=== PATIENT | male | born 1980 | race Caucasian/White ===

== ENCOUNTER 2019-10-11 16:29 | Emergency (ER) | payer SELFPAY ==
[2019-10-11] VITALS (8 sets, daily range): BP systolic 143–181; BP diastolic 104–124; PULSE 70–99; RESP 18–28; TEMP 36.1–37.1; O2SAT 96–98
--- NOTE | ~2019-10-11 | XR_ITS ---
EXAMINATION: XR chest 1V portable DATE: 10/11/2019 17:57 INDICATION: Cough. Dyspnea. TECHNIQUE: A single frontal view of the chest was obtained on 2 radiographs. COMPARISON: CT abdomen and pelvis 08/03/2016 FINDINGS: The chest demonstrates clear lungs without pneumonia, pleural effusion, or pneumothorax. Th e heart size is normal. IMPRESSION: 1. No acute cardiopulmonary disease. Reviewed, dictated and finalized at location A.
--- NOTE | 2019-10-11 16:38 | ECG_ITS ---
Measurements Intervals [place] Rate: 84 P: 46 OR: 145 QRS: 3 QRSD: 89 T: 35 QT: 372 QTc: 441 Interpretive Statements SINUS RHYTHM NONSPECIFIC T-WAVE ABNORMALITY- INFERIOR LEADS BORDERLINE ECG Electronically Signed On 10-12-2019 7:40:52 CDT by Murphy Millard D.O.
[2019-10-11 17:12] LABS: Basophils Absolute Auto 0.1 K/mm3 (0.0-0.1); Basophils Percent Auto 0.9 % (0.2-1.2); Eosinophils Absolute Auto 0.3 K/mm3 (0-0.3); Eosinophils Percent Auto 2.7 % (0-4.4); Hematocrit 49.3 % (42.0-52.0); Hemoglobin 17.2 g/dL (14.0-18.0); Immature Granulocyte Absolute 0.05 K/mm3 (0.00-0.031); Immature Granulocyte Percent A 0.5 % (0-0.5); Lymphocytes Absolute Auto 2.08 K/mm3 (0.9-3.2); Lymphocytes Percent Auto 22.3 % (18.3-44.2); Mean Corpuscular HGB Conc 34.9 g/dl (32-36); Mean Corpuscular Hemoglobin 29.9 pg (26-34); Mean Corpuscular Volume 85.6 fl (80-100); Mean Platelet Volume 10.6 fl (7.4-10.4); Monocytes Absolute Auto 0.6 K/mm3 (0.1-0.6); Monocytes Percent Auto 6.2 % (2.6-8.5); Neutrophils Absolute Auto 6.3 K/mm3 (1.3-6.7); Neutrophils Percent Auto 67.4 % (45.5-73.1); Platelet Count Result 253 k/mm3 (150-375); Red Blood Count 5.76 M/mm3 (4.6-6.20); Red Cell Distribution Width 13.2 % (11.5-14.5); White Blood Count 9.3 K/mm3 (4.5-10.0)
--- NOTE | 2019-10-11 17:18 | ED.GENADULT ---
HPI - General Adult General Chief complaint: Syncope Stated complaint: WOKE UP DIZZY, NAUSEA Time Seen by Provider: 10/11/19 17:18 Source: patient Mode of arrival: ambulatory Limitations: no limitations History of Present Illness HPI narrative: Patient is a 39-year-old male who presents for evaluation of various symptoms which include dry cough, shortness of breath, nausea, diarrhea. Patient reports that he was concerned this morning when he awakened and was a bit disoriented initially. Patient states that he is not sure if he was at home, but quickly realized he was at his home residence. Patient states that throughout the day he has had a dry cough, shortness of breath with walking. He denies any chest pain. No fever. 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 No leg swelling or leg pain. No palpitations. Patient reports diarrhea, mild abdominal pain. Patient does use E cigarettes/vaping. He reports he has no history of hypertension but states his blood pressures have been elevated since being here. Related Data Allergies Allergy/AdvReac Type Severity Reaction Status Date / Time No Known Allergies Allergy Verified 10/11/19 17:02 Review of Systems Review of Systems: Narrative: CONSTITUTIONAL: Denies fever, chills EYES: Denies visual changes, redness, or discharge. ENT: Denies rhinorrhea, congestion, sore throat, or otalgia. CARDIOVASCULAR: Denies chest pain, palpitations, or edema. RESPIRATORY: Reports cough and shortness of breath GASTROINTESTINAL: Reports abdominal pain, nausea and diarrhea GENITOURINARY: Denies dysuria or hematuria. SKIN: Denies rash or itching. MUSCULOSKELETAL: Denies back pain, joint pain, or myalgia. NEUROLOGIC: Denies headache, numbness, or weakness. [facility] Past Medical History Medical History No pertinent past medical history Surgical History Surgical History (Updated 10/11/19 @ 17:42 by Caitlin Ansari MD) No pertinent past surgical history Family History Family History (Updated 11/09/16 @ 11:08 by DOCTOR UNKNOWN) Father Family history of lung cancer Family history of renal failure Family history of congestive heart failure Other Diabetes mellitus Hypertension Social History Social History (Updated 10/11/19 @ 17:43 by Caitlin Ansari MD) Smoking status: Current every day smoker Tobacco type: e-cigarettes/vaping Smoking end date: 03/27/14 Alcohol intake: current Substance use: never Gender identity (if verbalized by the patient): Male Exam Narrative: Exam Narrative: GENERAL: Awake, alert, conversant HEAD: Normocephalic, atraumatic. EYES: PERRLA and EOMI. ENT: Nares clear, no rhinorrhea or epistaxis. Mucous membranes moist. NECK: Supple. CHEST: Mild tachypnea, no respiratory distress, coarse breath sounds bilaterally, no expiratory wheezing, no crackles HEART: Regular rate, sinus rhythm ABDOMEN:Non distended, non tender EXTREMITIES: Normal range of motion. No edema. SKIN: Warm, dry, no rash. NEURO:No focal deficits. Alert and oriented x3. EOMs intact without nystagmus. No facial droop/asymmetry noted bilaterally. Grimace intact. Intact sensation in face. Hearing intact bilaterally. Shoulder shrug intact. Strength 5/5 bilateral upper extremities. Strength 5/5 bilateral lower extremities. Reflexes 2+ patellar. Ambulatory with a narrow base, steady gait, no ataxia. Course Vital Signs Vital signs: Vital Signs Temperature 37.1 C 10/11/19 16:41 Pulse Rate 88 10/11/19 16:41 Respiratory Rate 28 H 10/11/19 16:41 Blood Pressure 181/124 H 10/11/19 16:41 Pulse Oximetry 97 10/11/19 16:41 Temperature 37.1 C 10/11/19 16:41 Pulse Rate 79 10/11/19 18:15 Respiratory Rate 20 10/11/19 18:15 Blood Pressure 150/106 H 10/11/19 18:15 Pulse Oximetry 96 10/11/19 18:15 Medical Decision Making MDM Narrative Medical decisi
[2019-10-11 17:38] LABS: Blood Urea Nitrogen 10 mg/dL (9-20); Calcium 9.1 mg/dL (8.4-10.2); Carbon Dioxide 26 mmol/L (22-30); Chloride 102 mmol/L (98-107); Estimated CRCL calculation 119 ml/min; Estimated Glomerular Filt Rate > 60; Glucose 101 mg/dL (75-110); Potassium 3.8 mmol/L (3.4-5.0); Sodium 136 mmol/L (137-145)
[2019-10-11 18:11] LABS: Lactate Dehydrogenase 356 U/L (313-618)
[2019-10-11 18:15] LABS: Partial Thromboplastin Time 33.6 SECONDS (22.3-36.8); Prothrombin Time 12.9 Seconds (11.1-14.7)
[2019-10-11 18:24] LABS: NT Pro B Type Natriuretic Pept 24 PG/ML (5-100); Troponin I < 0.012 ng/mL (0.000-0.034)
[2019-10-12 14:21] LABS: SARS-CoV-2 RNA PCR Negative
== END 2019-10-11 19:17 | disposition home or self-care (01) ==
PROVIDERS: Emergency Provider Emergency Medicine
DX: R05 Cough (principal); R06.02 Shortness of breath; Z20.828 Contact with and (suspected) exposure to other viral communicable diseases; F17.290 Nicotine dependence, other tobacco product, uncomplicated; R94.31 Abnormal electrocardiogram [ECG] [EKG]
CPT/HCPCS: 36415; 71045; 80048; 82728; 83615; 83880; 84484; 85025; 85610; 85730; 87635; 93005; 99283; C9803; U0003

== ENCOUNTER 2019-11-02 14:49 | Emergency (ER) | payer SELFPAY ==
[2019-11-02 14:51] VITALS: BP 181/98; PULSE 105; RESP 18; TEMP 39.2; O2SAT 99
--- NOTE | 2019-11-02 15:36 | ED.GENADULT ---
HPI - General Adult General Chief complaint: Upper Respiratory Infection Stated complaint: FEVER,CHILLS, BODY ACHES Time Seen by Provider: 11/02/19 15:09 History of Present Illness HPI narrative: Patient is a 39-year-old male who presents the ER with diarrhea and fever. Symptoms began last night. Associate abdominal cramping. No point tenderness. No blood in his stools. No known sick contacts. Denies runny nose/sore throat/productive cough. No chest pain or chest pressure. No history of inflammatory bowel disease. He has had a colonoscopy in the past. Related Data Allergies Allergy/AdvReac Type Severity Reaction Status Date / Time No Known Allergies Allergy Verified 10/11/19 17:02 Review of Systems Review of Systems: All systems reviewed & are unremarkable except as noted in HPI and below Constitutional: Constitutional: Reports chills, Reports fatigue and Reports fever(s) ENT: Denies nasal congestion and Denies sore throat Cardiovascular: Cardiovascular: Denies chest pain Respiratory: Respiratory: Denies cough, Denies dyspnea and Denies wheezing Gastrointestinal: Gastrointestinal: Denies abdominal pain, Reports diarrhea, Denies nausea and Denies vomiting PMFSH Surgical History Surgical History (Updated 10/11/19 @ 17:42 by Caitlin Ansari MD) No pertinent past surgical history Family History Family History (Updated 11/09/16 @ 11:08 by DOCTOR UNKNOWN) Father Family history of lung cancer Family history of renal failure Family history of congestive heart failure Other Diabetes mellitus Hypertension Social History Social History (Updated 10/11/19 @ 17:43 by Caitlin Ansari MD) Smoking status: Current every day smoker Tobacco type: e-cigarettes/vaping Smoking end date: 03/27/14 Alcohol intake: current Substance use: never Gender identity (if verbalized by the patient): Male Exam Narrative: Exam Narrative: GENERAL: Uncomfortable-appearing, well-nourished, and in no acute distress. HEAD: Normocephalic, atraumatic. CHEST: Clear to auscultation. No respiratory distress. HEART: Tachycardic and regular normal peripheral pulses. ABDOMEN: Soft, nontender, nondistended, normal active bowel sounds. EXTREMITIES: Normal range of motion. No edema. SKIN: Warm, dry, no rash. NEURO: Alert and oriented x3. PSYCH: Normal mood and affect. Course Course Emergency Course: Patient feels much better after fluids. Patient does report he is on a dose of antibiotics 3 weeks ago but it was only one short course of azithromycin. Recommend follow-up with PCP and should diarrhea persist he may require C. difficile testing. No focal tenderness abdomen. Vital Signs Vital signs: Vital Signs Temperature 102.5 F H 11/02/19 14:51 Pulse Rate 105 H 11/02/19 14:51 Respiratory Rate 18 11/02/19 14:51 Blood Pressure 181/98 H 11/02/19 14:51 Pulse Oximetry 99 11/02/19 14:51 Temperature 99.9 F H 11/02/19 16:27 Pulse Rate 80 11/02/19 16:27 Respiratory Rate 18 11/02/19 16:27 Blood Pressure 181/98 H 11/02/19 14:51 Pulse Oximetry 99 11/02/19 16:27 Medical Decision Making Vital Signs Vital Signs: Vital Signs Temperature 102.5 F H 11/02/19 14:51 Pulse Rate 105 H 11/02/19 14:51 Respiratory Rate 18 11/02/19 14:51 Blood Pressure 181/98 H 11/02/19 14:51 Pulse Oximetry 99 11/02/19 14:51 Temperature 99.9 F H 11/02/19 16:27 Pulse Rate 80 11/02/19 16:27 Respiratory Rate 18 11/02/19 16:27 Blood Pressure 181/98 H 11/02/19 14:51 Pulse Oximetry 99 11/02/19 16:27 Lab Data Result diagrams: 11/02/19 15:37 11/02/19 15:37 Labs: Lab Results 11/02/19 11/02/19 Range/Units 15:37 15:37 WBC 13.1 H (4.5-10.0) K/mm3 RBC 5.35 (4.6-6.20) M/mm3 Hgb 16.1 (14.0-18.0) g/dL Hct 45.5 (42.0-52.0) % MCV 85.0 (80-100) fl MCH 30.1 (26-34) pg MCHC 35.4 (32-36) g/dl RDW 13.1 (11.5-14.5) % Plt Count
[2019-11-02] MEDS: SODIUM CHLORIDE 0.9% IV 1,000 ML 999 ML IV CONT (15:43)
[2019-11-02 15:45] LABS: Basophils Absolute Auto 0.1 K/mm3 (0.0-0.1); Basophils Percent Auto 0.4 % (0.2-1.2); Eosinophils Absolute Auto 0.1 K/mm3 (0-0.3); Eosinophils Percent Auto 0.7 % (0-4.4); Hematocrit 45.5 % (42.0-52.0); Hemoglobin 16.1 g/dL (14.0-18.0); Immature Granulocyte Absolute 0.03 K/mm3 (0.00-0.031); Immature Granulocyte Percent A 0.2 % (0-0.5); Lymphocytes Absolute Auto 0.91 K/mm3 (0.9-3.2); Lymphocytes Percent Auto 6.9 % (18.3-44.2); Mean Corpuscular HGB Conc 35.4 g/dl (32-36); Mean Corpuscular Hemoglobin 30.1 pg (26-34); Mean Platelet Volume 10.5 fl (7.4-10.4); Monocytes Absolute Auto 0.6 K/mm3 (0.1-0.6); Monocytes Percent Auto 4.8 % (2.6-8.5); Neutrophils Absolute Auto 11.4 K/mm3 (1.3-6.7); Platelet Count Result 207 k/mm3 (150-375); Red Blood Count 5.35 M/mm3 (4.6-6.20); Red Cell Distribution Width 13.1 % (11.5-14.5); White Blood Count 13.1 K/mm3 (4.5-10.0)
[2019-11-02 15:56] LABS: Alanine Aminotransferase 22 U/L (4-50); Albumin Level 4.2 g/dL (3.5-5.1); Alkaline Phosphatase 106 U/L (38-126); Anion Gap 8 mmol/L (8-16); Aspartate Amino Transferase 19 U/L (17-59); Bilirubin,Total 0.6 mg/dL (0.2-1.3); Blood Urea Nitrogen 10 mg/dL (9-20); Calcium 8.6 mg/dL (8.4-10.2); Carbon Dioxide 27 mmol/L (22-30); Chloride 100 mmol/L (98-107); Estimated CRCL calculation 97 ml/min; Estimated Glomerular Filt Rate > 60; Glucose 100 mg/dL (75-110); Lipase 27 U/L (23-300); Potassium 3.8 mmol/L (3.4-5.0); Sodium 135 mmol/L (137-145)
[2019-11-02 16:15] VITALS: TEMP 37.7
[2019-11-02 16:27] VITALS: PULSE 80; RESP 18; TEMP 37.7; O2SAT 99
[2019-11-02 17:20] VITALS: BP 122/70; PULSE 80; RESP 18; TEMP 37.2; O2SAT 99
== END 2019-11-02 17:22 | disposition home or self-care (01) ==
PROVIDERS: Emergency Provider Emergency Medicine; PCP Family Medicine
DX: K52.9 Noninfective gastroenteritis and colitis, unspecified (principal); F17.290 Nicotine dependence, other tobacco product, uncomplicated
CPT/HCPCS: 36415; 80053; 83690; 85025; 96361; 96365; 99284; J0131; J7030